=== PATIENT | male | born 1940 | race Caucasian/White ===

== ENCOUNTER → 2017-08-07 | Day surgery (SDC) | payer BC ==
[~2017-08-07] VITALS: Ht 177.8 cm; Wt 85.7 kg
[~2017-08-07] MED LIST: BUPIVACAINE MPF 0.5% 30 ML VIAL. ONE; CHOL2000 PO; CLON0.5T3 PO; CYAN10002 IM; DEXAMETHASONE SOD PHOS 20 MG/5 ML VIAL. ONE; FAMOTIDINE 20 MG/2 ML VIAL ONE; HYDR-971 PO; HYDROcodone/APAP 5/325MG 1 TAB TABLET PO PRN; HYDROmorphone 2 MG/ML VIAL IV PRN; IBUP-1027 PO; LIDOCAINE 1% 20 ML VIAL. ONE; LIDOCAINE 1% PF 2 ML VIAL. ID PRN; LIDOCAINE 2% PF Vial for OR 5 ML VIAL. ONE; METO-239 PO; MIDAZOLAM HCL/PF 2 MG/2 ML VIAL. ONE; MORPHINE SULFATE 2 MG/ML DISP.SYRIN. ONE; ONDANSETRON PF 4 MG/2 ML VIAL. IV PRN; ONDANSETRON PF 4 MG/2 ML VIAL. ONE; PHENYLEPHRINE in 0.9% NACL PF 1 MG/10 ML DISP.SYRIN. IV ONE; PRAM0.255 PO; PROCHLORPERAZINE 10 MG/2 ML VIAL. IV PRN; PROPOFOL 20 ML IV ONE; ROCURONIUM 100 MG/10 ML VIAL. ONE; SEVOFLURANE 61 TO 120 MINUTES. IH ONE; SIMV40TA3 PO; TAMS0.4C2 PO; fentaNYL PF VIAL 100 MCG/2 ML VIAL IV PRN; fentaNYL PF VIAL 100 MCG/2 ML VIAL ONE
[2017-08-07] MEDS: IV RINGERS,LACTATED 1000ML 1,000 ML IV SCH ×2 (07:00→10:37)
--- NOTE | 2017-08-07 11:19 | DISCH ---
DISCHARGE INSTRUCTIONS Condition on Discharge Condition on Discharge: Stable Activity After Discharge Activity Instructions for Disc: Other, see below Other activity instructions: arm to remain in splint; wiggle fingers Bathing Instructions: Shower-keep dressing dry Weight Bearing Status after Di: Non weight bearing Diet after Discharge Diet after Discharge: Regular Wound Incision Care Wound/Incision Care: Ice to area for comfort, Keep wound/cast CDI, Keep wound elevated, Do not change dressing Contacting the DRMartir after DC Call your doctor for: Concerns you may have Follow-Up Follow up with: Beck in 2wks CHRISTOPHER KNOWLES II, MD Aug 07, 2017 11:19
--- NOTE | 2017-08-07 11:20 | PDOC ---
BRIEF OPERATIVE NOTE Date: Aug 07, 2017 Pre-Op Diagnosis Comminuted displaced intraarticular left distal radius fracture Post-Op Diagnosis same Procedure Performed ORIF Bess Faria Surgeon Beck Watkins Anesthesia Type: General, Local Blood Loss 25mL Complications none CHRISTOPHER KNOWLES II, MD Aug 07, 2017 11:20
[2017-08-07] MEDS: fentaNYL PF VIAL 100 MCG/2 ML VIAL IV PRN ×2 (13:33→13:41)
[2017-08-07] MEDS: MORPHINE SULFATE 2 MG/ML DISP.SYRIN. IV PRN ×2 (14:18→14:30)
[2017-08-07 15:00] VITALS: BP 123/64
--- NOTE | 2017-08-08 09:44 | PDOC4 ---
Operative Note Operative Note Date of surgery: 08/07/2017 Surgeon: Vipin Sosa.: Annamaria Watkins Preoperative diagnosis: Closed right displaced and mildly angulated intra- articular distal radius fracture Postoperative diagnosis: Same Procedure performed: Operative fixation right distal radius fracture, intra- articular Anesthesia: Gen. plus local Tourniquet time: 39 minutes Blood loss: 25 mL Components inserted: Palacio and nephew 4-hole right standard distal radius locking plate Complications: None Reason for procedure: Dixon is a very pleasant 77-year-old gentleman who suffered a ground-level fall and sustained the above fracture. He was seen at outside institution where he underwent splinting of his fracture and was referred to myself for definitive management. 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 After discussing it with family, he elected to proceed with the operation. Description of procedure: Patient was greeted in the preoperative area by myself for the correct extremity was marked and verified. He was taken back to the operative suite and his antibiotics were started and row. Once in the OR he was transferred gently supine to the operating room table and secured to the bed with all pressure points padded. He then underwent successful induction of a general anesthetic. We then took his splint off cleansed his arm with chlorhexidine. We then applied a nonsterile tourniquet to his right upper extremity. We then proceeded to prep and drape right upper extremity in our usual sterile fashion. After this, we conducted our standard preoperative timeout. I then palpated his radial artery and FCR tendon and jake a line from his volar skin incision. I then incised skin with a scalpel and dissected subcutaneous tissue with tenotomies. Bipolar cautery was used for hemostasis. I then incised this fascia in line with the skin incision and bluntly dissected down to the pronator quadratus which I then released with electrocautery. I then used a periosteal elevator as well as a Dalton elevator to clear the soft tissue from the volar distal radius as well as a fracture site. I debrided some blood clot from the fracture site with a metal tipped suction device. I then performed a closed reduction maneuver, pulling traction through the radial column of his hand and flexing his hand and I then keyed in his radial styloid fracture fragment into better position with the Dalton elevator. I then pinned this into position and applied my plate. I used an AP oblique and lateral C-arm images to guide my plate placement and then secured to the bone. I then placed my nonlocking screw to the distal holes followed by locking screws. I placed another screw, locking, into the radial styloid. I used a liberal fluoroscopy to ensure no joint violation. After this I placed 2 more nonlocking screws to secure the plate to his volar distal radius. I then remove the K wire that I hadn't placed. I then took my final images and was happy with fracture reduction and hardware position. The operative field was then irrigated out thoroughly. The tourniquet was let down and there is some small bleeders that were cauterized with bipolar cautery. After this, I closed subcutaneous tissue with inverted interrupted 2-0 Vicryl followed by 2-0 nylon in a simple interrupted fashion for skin. The area was cleansed and dried. Local anesthetic was infiltrated in the subcutaneous tissue. We then placed a sterile dressing followed by a sugar tong splint to his right upper extremity. He tolerated surgery well. Prior to accomplishing wound closure, all counts were reported as correct 2. No complications. At the conclusion of the surgery she was awakened from anesthesia and transferred supine to the recovery room cart and taken to the PACU in a stable and extubated condition. Postoperative plan is for him to be nonweightbearing 6 weeks. We will see him back in clinic in 2 weeks, sooner should a problem arise. VIPIN KNOWLES II, MD Aug 08, 2017 09:44
== END | disposition home or self-care (01) ==
LOC: SURG 10:00
PROVIDERS: ATTEND Orthopaedic Surgery Sports Medicine
DX: S52.571A Other intraarticular fracture of lower end of right radius, initial encounter for closed fracture (principal); X58.XXXA Exposure to other specified factors, initial encounter; Y93.89 Activity, other specified; Y92.89 Other specified places as the place of occurrence of the external cause; Y99.8 Other external cause status; E78.00 Pure hypercholesterolemia, unspecified; F41.9 Anxiety disorder, unspecified; Z88.8 Allergy status to other drugs, medicaments and biological substances; Z86.69 Personal history of other diseases of the nervous system and sense organs; Z87.39 Personal history of other diseases of the musculoskeletal system and connective tissue; Z90.49 Acquired absence of other specified parts of digestive tract
CPT/HCPCS: 25608; 76000; C1713; J0690; J1100; J2250; J2270; J2370; J2405; J2704; J3010; J3490; S0028; J2001

== ENCOUNTER → 2017-11-07 | Outpatient (CLI) | payer BC | END | disposition home or self-care (01) | LOC: RAD 08:40 | DX: S52.591A Other fractures of lower end of right radius, initial encounter for closed fracture (principal); M80.831A Other osteoporosis with current pathological fracture, right forearm, initial encounter for fracture; M25.731 Osteophyte, right wrist; X58.XXXA Exposure to other specified factors, initial encounter; Y93.89 Activity, other specified; Y92.89 Other specified places as the place of occurrence of the external cause; Y99.8 Other external cause status | CPT/HCPCS: 73110 ==

== ENCOUNTER → 2020-02-14 | Outpatient (CLI) | payer BC ==
[2017-08-07 15:00] VITALS: BP 123/64
[~2020-02-14] MED LIST changes: -BUPIVACAINE MPF 0.5% 30 ML VIAL. ONE; +CLON-77 PO; -CLON0.5T3 PO; -DEXAMETHASONE SOD PHOS 20 MG/5 ML VIAL. ONE; -FAMOTIDINE 20 MG/2 ML VIAL ONE; +HYDR-3164 PO; -HYDR-971 PO; -HYDROcodone/APAP 5/325MG 1 TAB TABLET PO PRN; -HYDROmorphone 2 MG/ML VIAL IV PRN; -LIDOCAINE 1% 20 ML VIAL. ONE; -LIDOCAINE 1% PF 2 ML VIAL. ID PRN; -LIDOCAINE 2% PF Vial for OR 5 ML VIAL. ONE; -MIDAZOLAM HCL/PF 2 MG/2 ML VIAL. ONE; -MORPHINE SULFATE 2 MG/ML DISP.SYRIN. ONE; -ONDANSETRON PF 4 MG/2 ML VIAL. IV PRN; -ONDANSETRON PF 4 MG/2 ML VIAL. ONE; -PHENYLEPHRINE in 0.9% NACL PF 1 MG/10 ML DISP.SYRIN. IV ONE; -PROCHLORPERAZINE 10 MG/2 ML VIAL. IV PRN; -PROPOFOL 20 ML IV ONE; -ROCURONIUM 100 MG/10 ML VIAL. ONE; -SEVOFLURANE 61 TO 120 MINUTES. IH ONE; +SIMV40TA18 PO; -SIMV40TA3 PO; -fentaNYL PF VIAL 100 MCG/2 ML VIAL IV PRN; -fentaNYL PF VIAL 100 MCG/2 ML VIAL ONE
--- NOTE | 2020-02-14 16:46 | CARD ---
MR#: [id number] Date of Study: 02/14/2020 Ordering Physician: RYANN ROLDAN, Referring Physician: RYANN ROLDAN, Tech: Jessica Regan ANAMARIA APPROVED REPORT EXAM: Two-dimensional and M-mode echocardiogram with Doppler and color Doppler. Other Information Quality : Good INDICATION Peripheral Edema 2D DIMENSIONS RVDd2.8 (2.9-3.5cm)Left Atrium(2D)3.3 (1.6-4.0cm) IVSd1.0 (0.7-1.1cm)Aortic Root(2D)3.1 (2.0-3.7cm) LVDd4.4 (3.9-5.9cm)LVOT Diameter2.1 (1.8-2.4cm) PWd1.1 (0.7-1.1cm)LVDs2.4 (2.5-4.0cm) FS (%) 30.0 %SV65.8 ml LVEF(%)60.0 (>50%) Aortic Valve AoV Peak Harsha.137.5cm/sAoV VTI22.1cm AO Peak GR.7.6mmHgLVOT Peak Harsha.110.1cm/s AO Mean GR.4mmHgAVA (VMAX)2.70cm2 SHAHAB (VTI)2.80cm2 Tricuspid Valve TR P. Kbhzowvi970wg/sRAP XEMGKYNG35otVe TR Peak Gr.62cyNaLJAE30ffKc Pulmonary Vein S1 Eucbodfx29.9cm/sD2 Gjvqnncn08.2cm/s LEFT VENTRICLE The left ventricle is normal size. There is normal left ventricular wall thickness. The left ventricu lar systolic function is normal and the ejection fraction is within normal range. The Ejection Fracti on is 55-60%. There is normal LV segmental wall motion. The left ventricular diastolic function and f illing is normal for age. No left ventricle thrombus noted on this study. There is no ventricular sep maggie defect visualized. RIGHT VENTRICLE The right ventricle is normal size. The right ventricular systolic function is normal. ATRIA The left atrium size is normal. The right atrium size is normal. The interatrial septum is intact wit h no evidence for an atrial septal defect or patent foramen ovale as noted on 2-D or Doppler imaging. AORTIC VALVE The aortic valve is mildly thickened but opens well. Doppler and Color Flow revealed trace aortic reg urgitation. There is no significant aortic valvular stenosis. MITRAL VALVE The mitral valve is moderately thickened. Mitral annular calcification is moderate. A posterior mild mitral valve prolapse is present. There is no mitral valve stenosis. Doppler and Color-flow revealed mild mitral regurgitation. TRICUSPID VALVE The tricuspid valve is normal in structure and function. Doppler and Color Flow revealed mild tricusp id regurgitation. There is moderate pulmonary hypertension. The PA pressure was estimated at 48 mmHg. There is no tricuspid valve stenosis. PULMONIC VALVE The pulmonary valve is normal in structure and function. Doppler and Color Flow revealed mild pulmoni c valvular regurgitation. There is no pulmonic valvular stenosis. GREAT VESSELS The aortic root is normal in size. The ascending aorta is normal in size. The IVC is dilated and hi apses <50% with inspiration. PERICARDIAL EFFUSION There is no evidence of significant pericardial effusion. Critical Notification Critical Value: No <Conclusion> The left ventricular systolic function is normal and the ejection fraction is within normal range. Th e Ejection Fraction is 55-60%. There is normal LV segmental wall motion. Doppler and Color Flow revealed mild tricuspid regurgitation. There is moderate pulmonary hypertensio n. The PA pressure was estimated at 48 mmHg. Signed by : Rikki Dupont, Electronically Approved : 02/14/2020 16:45:41
== END ==
LOC: ECHO 14:20
PROVIDERS: ATTEND Internal Medicine Cardiovascular Disease
DX: I08.8 Other rheumatic multiple valve diseases (principal); I27.20 Pulmonary hypertension, unspecified
CPT/HCPCS: 93306

== ENCOUNTER → 2020-02-18 | Outpatient (CLI) | payer BC ==
[2017-08-07 15:00] VITALS: BP 123/64
--- NOTE | 2020-02-18 14:12 | RAD ---
Bilateral lower extremity venous Doppler ultrasound History: Lower extremity edema. Comparison: None. Procedure: Color flow Doppler, Doppler spectral analysis, and 2D images are obtained with and without compression in the area of the common femoral vein, superficial femoral vein - femoral vein junction, main femoral vein (superficial femoral vein) and popliteal vein. Veins of the proximal calf are also imaged. Findings: There is partial thrombus in the right peroneal vein. The vein segment is incompletely compressible. There is some preserved color flow. There is normal color flow, augmentation, and compressibility of all other visualized deep vein segments. IMPRESSION: 1. Partially occlusive thrombus in the right peroneal vein. 2. No evidence of left lower extremity deep venous thrombosis. Electronically signed by: Christ Cleary MD (02/18/2020 2:10 PM) [id number]
--- NOTE | 2020-02-18 14:18 | RAD ---
Bilateral lower extremity venous reflux ultrasound. History: Lower extremity edema Comparison: None. Procedure: Color flow Doppler, spectral Doppler analysis, and 2D images are obtained with and without patient performing Valsalva maneuver of the superficial veins of both lower extremities. Findings: The right greater saphenous vein at the saphenofemoral junction has diameter of 10 mm, reflux measures 0.65 seconds. No other reflux is identified in the right greater saphenous vein. The right lesser saphenous vein does not demonstrate reflux. Diameter is 2 mm. The left greater saphenous vein does not demonstrate reflux. The proximal diameter is 8 mm. No reflux is seen in the left lesser saphenous vein, diameter 4 mm. IMPRESSION: There is reflux in the right greater saphenous vein at the saphenofemoral junction measuring 0.65 seconds. There is otherwise no reflux. Electronically signed by: Christ Cleary MD (02/18/2020 2:15 PM) [id number]
== END | disposition home or self-care (01) ==
LOC: US 13:09
PROVIDERS: ATTEND Internal Medicine Cardiovascular Disease
DX: I82.451 Acute embolism and thrombosis of right peroneal vein (principal)
CPT/HCPCS: 93970

== ENCOUNTER → 2020-06-24 | Outpatient (CLI) | payer BC ==
[2017-08-07 15:00] VITALS: BP 123/64
--- NOTE | 2020-06-25 11:34 | RAD ---
MR#: [id number] Date of Study: 06/24/2020 Ordering Physician: RYANN ORLDAN, Referring Physician: RYANN ROLDAN, Tech: Drake Peterson MBA, RDMS, RVT, RDCS, RTR APPROVED REPORT Bilateral Lower Extremity Venous Study for DVT Patient Location: OUT-PATIENT Indications Lower Extremity Edema: Bilateral DVT of Lower Extremity:Right Vein Imaging (Right) CFV (R): Compressible SFJ (R): Compressible FEM (R): Compressible POP (R): Compressible DFV (R): Compressible PTV (R): Spontaneous GSV (R): Spontaneous Peroneals (R): Spontaneous Vein Imaging (Left) CFV (L): Compressible SFJ (L): Compressible FEM (L): Compressible POP (L): Compressible DFV (L): Compressible PTV (L): Spontaneous GSV (L): Spontaneous Peroneals (L): Spontaneous Doppler Evaluation (Right) CFV (R): Spontaneous POP (R):Spontaneous Doppler Evaluation (Left) CFV (L):Spontaneous POP (L):Spontaneous Findings The bilateral lower extremity deep veins were evaluated for thrombus with color Doppler, spectral and grayscale images. On the right the grayscale images of the common femoral, superficial femoral and popliteal veins do n ot demonstrate any evidence of thrombus and these veins appear to be compressible. The below-knee vei ns were not well visualized but grossly appear to be compressible. Spectral imaging and color Doppler do not reveal any evidence of obstruction to flow with normal respirophasic variation above the knee . Below the knee there is spontaneous flow noted. On the left, the grayscale images of the common femoral, superficial femoral and popliteal veins do n ot demonstrate any evidence of thrombus and these veins appear to be compressible. The below-knee vei ns again were not well visualized but grossly appear to be compressible. Spectral imaging and color D oppler do not reveal any evidence of obstruction to flow with normal respirophasic variation above th e knee. The below-knee veins demonstrate spontaneous flow. Critical Notification Critical Value: No <Conclusion> 1. No evidence of DVT in the BLE 2. Technically difficult study Signed by : Rikki Dupont, Electronically Approved : 06/25/2020 11:33:38
== END | disposition home or self-care (01) ==
LOC: US 12:15
PROVIDERS: ATTEND Internal Medicine Cardiovascular Disease
DX: I82.403 Acute embolism and thrombosis of unspecified deep veins of lower extremity, bilateral (principal); R60.0 Localized edema
CPT/HCPCS: 93970

== ENCOUNTER 2021-09-21 05:27 | Emergency (ER) | payer BC ==
[2017-08-07 15:00] VITALS: BP 123/64
[~2021-09-21 05:27] MED LIST changes: +EPINEPHrine SYRINGE 1 MG/10 ML SYRINGE. ONE; +SODIUM BICARB ADULT 8.4% 50 MEQ/50 ML DISP.SYRIN. ONE
--- NOTE | 2021-09-21 05:39 | PHYS DOC ---
General Adult EDM: Chief Complaint: CPR/FULL ARREST HPI: HPI: Patient is a 81 year old male brought in by EMS, from home, for cardiorespiratory arrest. The patient had reportedly been complaining of shortness of breath and not feeling well. The patient had agonal respirations, bradycardia, which transition to asystole, witnessed by EMS. EMS placed an intraosseous line in his right lower extremity, intubated him with a 7.5 ET tube, reportedly without difficulty, did not require any sedatives or RSI medications. He was given multiple rounds of IV epinephrine as well as IV fluids by EMS. On arrival, the patient was pulseless, apneic, being bagged with active CPR in progress. His pupils are fixed and dilated. He is not moving purposefully. He is not breathing spontaneously. ACLS protocol was continued. He was continued to be bagged via ET tube. He is given IV epinephrine, IV sodium bicarbonate, continued IV fluids. Please see nursing note for further details of medications and times of medications. I did confirm endotracheal tube placement, with equal chest rise, equal bilateral breath sounds, misting of the tube. The patient remained in asystole, ROSC was never achieved. CODE BLUE was called at 0534. Review of Systems: Review of Systems: Review of systems as per HPI, with reported dyspnea subsequent respiratory and cardiac arrest. Heart Score: C/O Chest Pain: N/A Risk Factors: Risk Factors: DM, Current or recent (<one month) smoker, HTN, HLP, family history of CAD, obesity. Risk Scores: Score 0 - 3: 2.5% MACE over next 6 weeks - Discharge Home Score 4 - 6: 20.3% MACE over next 6 weeks - Admit for Clinical Observation Score 7 - 10: 72.7% MACE over next 6 weeks - Early Invasive Strategies Allergies: Allergies: Allergies Coded Allergies Type Severity Reaction Last Updated Verified tetanus toxoid, adsorbed Allergy Intermediate 08/07/17 Yes Physical Exam: PE: Constitutional: He is moribund, pale, pulseless, apneic, actively being bagged, CPR in progress. Very chronically ill-appearing. HENT: Normocephalic, atraumatic Eyes: Pupils are fixed and dilated. Neck: Trachea is midline. Cardiovascular: He is pulseless, no heart tones auscultated., He is cool, mottled, pale Lungs & Thorax: No spontaneous respirations. With bagging, equal chest rise, upper and midlung hooks are clear, no stridor. Abdomen: Abdomen is soft, nondistended Skin: Cool, dry, pale, mottled Back: No obvious deformity Extremities: No obvious deformity. His extremities are cool, mottled, pale, poorly perfused appearing. Neurologic: He is unresponsive. No purposeful movement. No spontaneous respirations. No gag reflex. Pupils are fixed and dilated. Psychologic: Unresponsive. EKG: EKG: [] Radiology/Procedures: Radiology/Procedures: [] Course & Med Decision Making: Course & Med Decision Making Please see nursing notes for timelines of medications. The code was called at . The patient is noted to continue to have asystole arrest. ROSC was not achieved. Prolonged resuscitative efforts were performed prior to arrival by EMS and continued here in the ED. The patient's primary care physician is Chase Rene, covering colleague for him is Dr. Smart, with whom I spoke regarding the patient's . Dr. Smart will send a message to Dr. Rene informing him of his , and he does not believe that there have been a reason that Dr. Rene would not sign the certificate. I contact the patient's stepdaughter, Jena, who was informed of the patient's condition. The patient's family does not wish to pursue autopsy. His family wishes for him to go to [facility] in [place], [place]. I contacted the home personally, I gave them the patient's information and family's information. They report that they will come slat pickler the patient from the hospital. John Disclaimer: John Disclaimer: This electronic medical record was generated, in whole or in part, using a voice recognition dictation system. Departure Departure Impression: Primary Impression: Cardiorespiratory arrest Disposition: 20 Condition: Referrals: JOANA RENE (PCP) GUY OROZCO DO Sep 21, 2021 05:39
== END 2021-09-21 05:34 ==
LOC: ER 05:27
DX: I46.9 Cardiac arrest, cause unspecified (principal); Z88.8 Allergy status to other drugs, medicaments and biological substances
CPT/HCPCS: 31500; 92950; J0171; J3490; 99285-25